=== PATIENT | female | born 1995 | race Caucasian/White ===

== ENCOUNTER 2020-05-10 06:15 | Inpatient (IN) | payer OTHER ==
[2020-05-10] MEDS ORDERED: TERBUTALINE 1 MG/ML VIAL SQ PRN (06:31)
[2020-05-10] MEDS ORDERED: LIDOCAINE 0.5% (PF) 5 MG/ML (50 ML SDV) SQ PRN (06:31)
[2020-05-10] MEDS ORDERED: OXYTOCIN 10 UNIT/ML 1 ML VIAL IM PRN (06:31)
[2020-05-10] MEDS ORDERED: METHYLERGONOVINE 0.2 MG/ML 1 ML AMP IM PRN (06:31)
[2020-05-10] MEDS ORDERED: CARBOPROST TROMETHAMINE 250 MCG/ML 1 ML AMP IM PRN (06:31)
[2020-05-10] MEDS ORDERED: AMPICILLIN 2,000 MG in SODIUM CHLORIDE 0.9% 100 ML IVPB STA (06:33)
[2020-05-10] MEDS: LACTATED RINGERS 1,000 ML IV SCH ×3 (06:43→17:16)
[2020-05-10] MEDS ORDERED: OXYTOCIN 30 UNITS/500 ML NS 30 UNIT in SALINE 1 500ML.BAG IV SCH (06:45)
[2020-05-10 07:01] LABS: Basophils # (A) 0.1 k/uL (0-0.2); Basophils % (A) 1 %; Eosinophils # (A) 0.4 k/uL (0-0.7); Eosinophils % (A) 3 %; HCT 41.3 % (34.0-46.0); HGB 13.5 gm/dL (11.4-16.0); Lymphocytes % (A) 20 %; MCH 29.8 pg (25.0-35.0); MCHC 32.6 g/dL (31.0-37.0); MCV 91.3 fL (80.0-100.0); Monocytes # (A) 1.1 k/uL (0-1.0); Monocytes % (A) 7 %; Neutrophils # (A) 10.2 k/uL (1.3-7.7); Neutrophils % (A) 68 %; Platelet Count 314 k/uL (150-450); RBC 4.53 m/uL (3.80-5.40); RDW 12.2 % (11.5-15.5); WBC 15.1 k/uL (3.8-10.6)
[2020-05-10] MEDS: AMPICILLIN 1,000 MG in SODIUM CHLORIDE 0.9% 50 ML IVPB SCH ×3 (11:03→18:46)
--- NOTE | 2020-05-10 12:56 | P.HPOB ---
History of Present Illness H&P Date: 05/10/20 Chief Complaint: Induction of labor 24-year-old presents at 40 weeks for induction of labor. Her cervix is 1- 2 cm dilated, 70% effaced, and -2 station. She is jose irregularly. heart tones are 135 with moderate variability and reactive. Review of Systems All systems: negative Constitutional: Denies chills, Denies fever Eyes: denies blurred vision, denies pain Ears, nose, mouth and throat: Denies headache, Denies sore throat Cardiovascular: Denies chest pain, Denies shortness of breath Respiratory: Denies cough Gastrointestinal: Denies abdominal pain, Denies diarrhea, Denies nausea, Denies vomiting Genitourinary: Denies dysuria, Denies hematuria Musculoskeletal: Denies myalgias Integumentary: Denies pruritus, Denies rash Neurological: Denies numbness, Denies weakness Psychiatric: Denies anxiety, Denies depression Endocrine: Denies fatigue, Denies weight change Past Medical History Past Medical History: No Reported History History of Any Multi-Drug Resistant Organisms: None Reported Past Surgical History: No Surgical Hx Reported Past Anesthesia/Blood Transfusion Reactions: No Reported Reaction Past Psychological History: No Psychological Hx Reported Smoking Status: Current every day smoker Past Alcohol Use History: None Reported Additional Past Alcohol Use History / Comment(s): 1/2 ppd Past Drug Use History: Marijuana Additional Drug Use History / Comment(s): occassional use - Past Family History Mother Family Medical History: Hypertension Additional Family Medical History / Comment(s): "heart problems" Father Additional Family Medical History / Comment(s): Stroke Medications and Allergies Home Medications Medication Instructions Recorded Confirmed Type Pnv No.95/Ferrous Fum/Folic AC 1 each PO DAILY 05/10/20 05/10/20 History [ Multivitamin Tablet] Allergies Allergy/AdvReac Type Severity Reaction Status Date / Time Corticosteroids Allergy Rash/Hives Verified 05/10/20 06:31 (Glucocorticoids) Exam Osteopathic Statement: *. No significant issues noted on an osteopathic structural exam other than those noted in the History and Physical/Consult. Vital Signs Temp Pulse Resp Pulse Ox 05/10/20 06:34 97.7 F 104 H 16 98 Intake and Output 05/09/20 05/10/20 05/10/20 22:59 06:59 14:59 Other: Weight 96.162 kg Heart: Regular rate and rhythm Lungs: Clear to auscultation bilaterally Abdomen: Soft, nontender Extremities: Negative Homans sign Results Result Diagrams: 05/10/20 06:40 Abnormal Lab Results - Last 24 Hours (Table) 05/10/20 Range/Units 06:40 WBC 15.1 H (3.8-10.6) k/uL Neutrophils # 10.2 H (1.3-7.7) k/uL Monocytes # 1.1 H (0-1.0) k/uL Assessment and Plan (1) Normal labor Current Visit: Yes Status: Acute Code(s): O80 - ENCOUNTER FOR FULL-TERM UNCOMPLICATED DELIVERY; Z37.9 - OUTCOME OF DELIVERY, UNSPECIFIED SNOMED Code(s): 11864556 Plan: 1. Induction of labor with amniotomy and Pitocin 2. Anticipate normal vaginal delivery
[2020-05-10] MEDS ORDERED: BENZOCAINE/MENTHOL SPRAY 1 GM/SPRAY AEROSOL TOPICAL PRN (23:43)
[2020-05-10] MEDS ORDERED: diphenhydrAMINE 50 MG/ML 1 ML VIAL IVP PRN ×2 (23:43)
[2020-05-10] MEDS ORDERED: IBUPROFEN 600 MG TAB PO PRN (23:43)
[2020-05-10] MEDS ORDERED: ZOLPIDEM 5 MG TAB PO PRN (23:43)
[2020-05-10] MEDS ORDERED: diphenhydrAMINE 25 MG CAP PO PRN (23:43)
[2020-05-10] MEDS ORDERED: SIMETHICONE 80 MG CHEWABLE PO PRN (23:43)
[2020-05-10] MEDS ORDERED: diphenhydrAMINE 50 MG CAP PO PRN (23:43)
[2020-05-10] MEDS ORDERED: LANOLIN CREAM 5 GM TUBE TOPICAL PRN (23:43)
[2020-05-10] MEDS ORDERED: ACETAMINOPHEN TAB 325 MG TAB PO PRN (23:43)
[2020-05-10] MEDS ORDERED: OXYTOCIN 20 UNITS/1000 ML NS 1,000 ML IV SCH (23:45)
[2020-05-11 07:21] LABS: Basophils # (A) 0.1 k/uL (0-0.2); Basophils % (A) 0 %; Eosinophils # (A) 0.2 k/uL (0-0.7); Eosinophils % (A) 1 %; HCT 39.4 % (34.0-46.0); HGB 12.6 gm/dL (11.4-16.0); Lymphocytes # (A) 2.3 k/uL (1.0-4.8); Lymphocytes % (A) 11 %; MCH 29.2 pg (25.0-35.0); MCHC 32.1 g/dL (31.0-37.0); MCV 91.2 fL (80.0-100.0); Mean Platelet Volume 8.2; Monocytes # (A) 1.6 k/uL (0-1.0); Monocytes % (A) 7 %; Neutrophils # (A) 17.6 k/uL (1.3-7.7); Neutrophils % (A) 79 %; Platelet Count 269 k/uL (150-450); RBC 4.31 m/uL (3.80-5.40); RDW 12.1 % (11.5-15.5); WBC 22.3 k/uL (3.8-10.6)
[2020-05-11] MEDS ORDERED: SENNOSIDES-DOCUSATE SODIUM 1 EACH TAB PO SCH (08:00)
--- NOTE | 2020-05-11 09:50 | P.PROBDLV ---
Vaginal Delivery Note - . Vaginal Delivery Note: 24-year-old presents at 40 weeks for induction of labor. Her cervix is 1- 2 cm dilated, 70% effaced, and -2 station. She is jose irregularly. heart tones are 135 with moderate variability and reactive. Pitocin was started. Amniotomy performed at 7:50 AM and clear fluid noted. heart tones remained category 1 and she changed positions, the Pitocin was increased per protocol and she was jose every few minutes but not very uncomforta ble until the late afternoon when she was 4 cm, 80% effaced and, -2 station. At this time she did get an epidural. Her cervix was completely dilated at 2301. She pushed, delivered a viable female infant over intact perineum under epidural anesthesia at 2326. Head delivered OA, anterior shoulder delivered gentle downward guidance of the posterior shoulder and rest of body. Nose and mouth bulb suctioned, cord clamped and cut, infant placed mother's abdomen. Apgars 8, 9, weight 6 lbs. 3 oz. Placenta delivered spontaneously, intact with three- vessel cord at 2330. Vagina, cervix, perineum inspected. First-degree midline laceration was repaired with 3-0 Vicryl. Estimated blood loss 150 mL. Mother and baby in stable condition.
--- NOTE | 2020-05-11 09:51 | P.PNOBGVD ---
Subjective - Subjective Principal diagnosis: Status post normal vaginal delivery day #1 Interval history: Patient seen and examined. Denies nausea, vomiting, chest pain, shortness of breath or calf pain. Patient reports: Reports appetite normal, Reports voiding normally, Reports pain well controlled, Reports ambulating normally [place]: doing well Objective - Latest Vital Signs Latest vital signs: Vital Signs Temp Pulse Resp BP Pulse Ox 05/11/20 08:00 98.5 F 84 18 129/79 99 05/11/20 04:00 98.5 F 98 16 122/77 99 05/11/20 01:40 98.1 F 93 16 126/69 05/11/20 01:10 98 16 132/63 05/11/20 00:40 97 16 130/71 05/11/20 00:25 101 H 16 142/73 05/11/20 00:10 106 H 16 133/68 05/10/20 23:55 107 H 16 158/78 05/10/20 23:40 98 F 99 16 132/78 99 Intake and Output 05/10/20 05/11/20 05/11/20 22:59 06:59 14:59 Output Total 200 Balance -200 Output: Urine 200 Other: # Voids 2 - Exam Lungs: bilateral: normal Chest: Normal S1, Normal S2 Extremities: Present: normal Abdomen: Present: normal appearance, soft Uterus: Present: normal, firm - Labs Labs: Abnormal Lab Results - Last 24 Hours (Table) 05/11/20 Range/Units 06:55 WBC 22.3 H (3.8-10.6) k/uL Neutrophils # 17.6 H (1.3-7.7) k/uL Monocytes # 1.6 H (0-1.0) k/uL Assessment and Plan (1) Normal vaginal delivery Current Visit: Yes Status: Acute Code(s): O80 - ENCOUNTER FOR FULL-TERM UNCOMPLICATED DELIVERY SNOMED Code(s): 81944835 Plan: 1. Continue care
[2020-05-12 00:36] VITALS: RESP 16
[2020-05-12 08:44] VITALS: BP 138/83; PULSE 75; TEMP 97.4
--- NOTE | 2020-05-12 09:59 | P.DS ---
Providers Date of admission: 05/10/20 06:20 Expected date of discharge: 05/12/20 Attending physician: Shruti Person Primary care physician: Stated None - Discharge Diagnosis(es) (1) Normal vaginal delivery Current Visit: Yes Status: Acute Hospital Course: Patient presented for induction of labor. She underwent a normal vaginal delivery. course was uncomplicated. Denies nausea, vomiting, chest pain, shortness of breath or calf pain. She's ablating voiding without difficulty. She'll be discharged home day #2 in stable condition to follow-up with me in 6 weeks. Plan - Discharge Summary New Discharge Prescriptions: No Action Pnv No.95/Ferrous Fum/Folic AC [ Multivitamin Tablet] 1 each PO DAILY Discharge Medication List Pnv No.95/Ferrous Fum/Folic AC [ Multivitamin Tablet] 1 each PO DAILY 05/10/20 [History]
--- NOTE | 2020-05-14 09:12 | CDI ---
Documentation Clarification Form Date: 05/14/20 From: Elo Case Phone: If you have a question about this query, please contact Gina Kelley, Clinical Education Consultant at [phone] between 8am and 5pm. Admit Date: 05/10/20 Discharge Date: 05/12/20 Patient Name: MARCIO NARANJO Visit Number: [id number] ATTENTION: The Clinical Documentation Specialists (CDI) and [facility] Coding Staff appreciate your assistance in clarifying documentation. Please respond to the clarification below the line at the bottom and electronically sign. The CDI & [facility] Coding staff will review the response and follow-up if needed. Please note: Queries are made part of the Legal Health Record. If you have any questions, please contact the author of this message via ITS. Dear Dr. Shruti Person, 24-year-old presents at 40 weeks for induction of labor. Per Delivery Form History: She is GBS Positive. She was started on Ampicillin 2,000 mg IVPB on admission. History/Risk Factors: smoking 1/2 ppd In your professional opinion, can you please clarify GBS positive? Other, please specify I don't understand the question. Her Group Beta Strep culture was positive when I tested her in the office. It is standard of care to treat GBS+ patients with antibiotics during labor.___ Unable to determine MTDD
== END 2020-05-12 11:50 | disposition home or self-care (01) | DRG 807 ==
LOC: 4FBP 06:20
PROVIDERS: ADMIT Obstetrics & Gynecology; ATTEND Obstetrics & Gynecology
PROC: 10907ZC Drainage of Amniotic Fluid, Therapeutic from Products of Conception, Via Natural or Artificial Opening (ICD-10-PCS; 2020-05-10)
PROC: 00HU33Z Insertion of Infusion Device into Spinal Canal, Percutaneous Approach (ICD-10-PCS; 2020-05-10)
PROC: 3E033VJ Introduction of Other Hormone into Peripheral Vein, Percutaneous Approach (ICD-10-PCS; 2020-05-10)
PROC: 3E0R3BZ Introduction of Anesthetic Agent into Spinal Canal, Percutaneous Approach (ICD-10-PCS; 2020-05-10)
PROC: 0HQ9XZZ Repair Perineum Skin, External Approach (ICD-10-PCS; principal; 2020-05-11)
PROC: 10E0XZZ Delivery of Products of Conception, External Approach (ICD-10-PCS; principal; 2020-05-11)
DX: O99.824 Streptococcus B carrier state complicating childbirth (principal); Z37.0 Single live birth; O70.0 First degree perineal laceration during delivery; O99.334 Smoking (tobacco) complicating childbirth; F17.210 Nicotine dependence, cigarettes, uncomplicated; Z3A.40 40 weeks gestation of pregnancy; Z79.899 Other long term (current) drug therapy; Z88.8 Allergy status to other drugs, medicaments and biological substances; Z82.49 Family history of ischemic heart disease and other diseases of the circulatory system; Z82.3 Family history of stroke
CPT/HCPCS: 85025; 86850; 86900; 86901

== ENCOUNTER 2021-05-18 10:24 | Inpatient (IN) | payer OTHER ==
[2021-05-18] MEDS ORDERED: LIDOCAINE 0.5% (PF) 5 MG/ML (50 ML SDV) SQ PRN (10:43)
[2021-05-18] MEDS ORDERED: METHYLERGONOVINE 0.2 MG/ML 1 ML AMP IM PRN (10:43)
[2021-05-18] MEDS ORDERED: TERBUTALINE 1 MG/ML VIAL SQ PRN (10:43)
[2021-05-18] MEDS ORDERED: AMPICILLIN 2,000 MG in SODIUM CHLORIDE 0.9% 100 ML IVPB STA (10:43)
[2021-05-18] MEDS ORDERED: OXYTOCIN 10 UNIT/ML 1 ML VIAL IM PRN (10:43)
[2021-05-18] MEDS ORDERED: CARBOPROST TROMETHAMINE 250 MCG/ML 1 ML AMP IM PRN (10:43)
[2021-05-18] MEDS ORDERED: LACTATED RINGERS 1,000 ML IV SCH (10:45)
[2021-05-18] MEDS ORDERED: OXYTOCIN 30 UNITS/500 ML NS 30 UNIT in SALINE 1 500ML.BAG IV SCH ×2 (10:45→14:34)
--- NOTE | 2021-05-18 11:22 | P.HPOB ---
History of Present Illness H&P Date: 05/18/21 Chief Complaint: Contractions This is a 25-year-old female 2 para 1 with an estimated date of confinement of 05/14/2021, estimated gestational age of 40-4/7 weeks, who presents to labor and delivery with complaints of contractions that began last night and became stronger today. She also wasn't sure if she was leaking some fluid. care has been with Dr. Person and has been uncomplicated per patient. labs: Chlamydia-positive initially, test of cure negative Gonorrhea/Trichomonas-negative Hepatitis B surface antigen-negative RPR-nonreactive Rubella-immune Blood type-a be positive Antibody screen-negative HIV-nonreactive Hemoglobin-13.6 Quad screen-negative Toxoplasma-negative Random glucose-43 Obstetrical ultrasound-normal anatomy One hour Glucola-92 B streptococcus-positive Obstetrical history: . History of 1 vaginal delivery at term. That did pass away from SIDS at approximately 2 months old. Gynecologic history: History of chlamydia treated during this Social history: She is single. She is unemployed. Review of Systems Constitutional: Denies chills, Denies fever Eyes: denies blurred vision, denies pain Ears, nose, mouth and throat: Denies headache, Denies sore throat Cardiovascular: Denies chest pain, Denies shortness of breath Respiratory: Denies cough Gastrointestinal: Reports abdominal pain (Irregular contractions) Genitourinary: Reports pelvic pain Musculoskeletal: Reports low back pain Integumentary: Denies pruritus, Denies rash Neurological: Denies numbness, Denies weakness Psychiatric: Denies anxiety, Denies depression Past Medical History Past Medical History: No Reported History History of Any Multi-Drug Resistant Organisms: None Reported Past Surgical History: No Surgical Hx Reported Past Anesthesia/Blood Transfusion Reactions: No Reported Reaction Past Psychological History: No Psychological Hx Reported Smoking Status: Current every day smoker Past Alcohol Use History: None Reported Additional Past Alcohol Use History / Comment(s): 1/2 ppd Past Drug Use History: Marijuana (Patient states she hasn't used since she found out she was ) Additional Drug Use History / Comment(s): occassional use - Past Family History Mother Family Medical History: Hypertension Additional Family Medical History / Comment(s): "heart problems" Father Additional Family Medical History / Comment(s): Stroke Medications and Allergies Home Medications Medication Instructions Recorded Confirmed Type Pnv No.95/Ferrous Fum/Folic AC 1 each PO DAILY 05/10/20 05/18/21 History [ Multivitamin Tablet] Allergies Allergy/AdvReac Type Severity Reaction Status Date / Time Corticosteroids Allergy Rash/Hives Verified 05/10/20 06:31 (Glucocorticoids) Exam Osteopathic Statement: *. No significant issues noted on an osteopathic structural exam other than those noted in the History and Physical/Consult. Intake and Output 05/17/21 05/18/21 05/18/21 22:59 06:59 14:59 Other: Weight 101.151 kg HEENT: Within normal limits Heart: Regular rate and rhythm Lungs: Clear to auscultation bilaterally Abdomen: Cervix: 6 cm/90%/bulging bag heart tones: Reactive, category 1 Contractions: Every 2-3 minutes Extremities: Negative Homans Assessment and Plan (1) 40 weeks gestation of Current Visit: Yes Status: Acute Code(s): Z3A.40 - 40 WEEKS GESTATION OF SNOMED Code(s): 66605382 (2) Group B Streptococcus carrier, +RV culture, currently Current Visit: Yes Status: Acute Code(s): O99.820 - STREPTOCOCCUS B CARRIER STATE COMPLICATING SNOMED Code(s): 7468077288071 Plan: Admission for active labor. Antibiotic prophylaxis for group B streptococcus. Expectant management. Epidural anesthesia if desired. Will check urine drug screen. Social service consult will also be performed due to open CPS case.
[2021-05-18 11:31] LABS: Basophils # (A) 0.1 k/uL (0-0.2); Basophils % (A) 0 %; Eosinophils # (A) 0.1 k/uL (0-0.7); Eosinophils % (A) 1 %; HCT 41.5 % (34.0-46.0); HGB 13.8 gm/dL (11.4-16.0); Lymphocytes # (A) 1.8 k/uL (1.0-4.8); Lymphocytes % (A) 8 %; MCH 30.6 pg (25.0-35.0); MCHC 33.3 g/dL (31.0-37.0); MCV 92.1 fL (80.0-100.0); Mean Platelet Volume 8.3; Monocytes % (A) 5 %; Neutrophils # (A) 18.8 k/uL (1.3-7.7); Neutrophils % (A) 85 %; Platelet Count 289 k/uL (150-450); RDW 12.1 % (11.5-15.5)
[2021-05-18] MEDS ORDERED: BUTORPHANOL 1 MG/ML 1 ML VIAL IV PRN (13:10)
[2021-05-18 13:21] LABS: Amphetamine Screen,Urine Not Detected (NotDetected); Barbiturate Screen,Urine Not Detected (NotDetected); Benzodiazepines Screen,Urine Not Detected (NotDetected); Cocaine Screen,Urine Not Detected (NotDetected); Methadone Screen, Urine Not Detected (NotDetected); Opiate Screen,Urine Not Detected (NotDetected); Oxycodone Screen, Urine Not Detected (NotDetected); Phencyclidine Screen,Urine Not Detected (NotDetected); Tricyclic Antidepressant,Urine Not Detected (NotDetected); Urn Cannabinoid Scrn Not Detected (NotDetected)
--- NOTE | 2021-05-18 14:32 | P.PROBDLV ---
Vaginal Delivery Note - . Vaginal Delivery Note: The patient progressed to complete dilation after artificial rupture membranes with clear fluid noted. She did receive 1 dose of ampicillin while in labor due to group B strep. She did receive 1 dose of Stadol while in labor. Once reaching complete, she began pushing. Infant's a cage a crown. With one further push the infant's head delivered across the perineum followed by the anterior shoulder. Nose and mouth were bulb suctioned. With one remaining push, the remainder the easily delivered and was placed on mother's abdomen. A viable female infant is noted with scores of 8 at 1 minute and 9 at 5 minutes and infant weight was 6 lbs. 12 oz. Placenta delivered shortly thereafter, intact, with a three-vessel cord. Also indications were noted within the placenta. Uterus contracted fairly well after oxytocin was given and uterine massage was carried out. Uterus did become a little boggy and a gloved hand was placed within the uterine cavity and blood clot was removed. No further membranous tissue was noted. Uterus did contract well after this. Estimated blood loss is approximately 200 mL's. Both mother and infant are in stable condition. No perineal lacerations are noted.
[2021-05-18] MEDS ORDERED: ACETAMINOPHEN TAB 325 MG TAB PO PRN (14:34)
[2021-05-18] MEDS ORDERED: LANOLIN CREAM 5 GM TUBE TOPICAL PRN (14:34)
[2021-05-18] MEDS ORDERED: diphenhydrAMINE 50 MG CAP PO PRN (14:34)
[2021-05-18] MEDS ORDERED: diphenhydrAMINE 25 MG CAP PO PRN (14:34)
[2021-05-18] MEDS ORDERED: HYDROCORTISONE 2.5% RECTAL CREAM 30 GM TUBE RECTAL PRN (14:34)
[2021-05-18] MEDS ORDERED: BENZOCAINE/MENTHOL SPRAY 1 GM/SPRAY AEROSOL TOPICAL PRN (14:34)
[2021-05-18] MEDS ORDERED: ZOLPIDEM 5 MG TAB PO PRN (14:34)
[2021-05-18] MEDS ORDERED: SIMETHICONE 80 MG CHEWABLE PO PRN (14:34)
[2021-05-18] MEDS ORDERED: IBUPROFEN 600 MG TAB PO PRN (14:34)
[2021-05-18] MEDS ORDERED: diphenhydrAMINE 50 MG/ML 1 ML VIAL IVP PRN ×2 (14:34)
[2021-05-18] MEDS ORDERED: AMPICILLIN 1,000 MG in SODIUM CHLORIDE 0.9% 50 ML IVPB SCH (15:00)
[2021-05-18] MEDS: SENNOSIDES-DOCUSATE SODIUM 1 EACH TAB PO SCH (20:07)
[2021-05-19 06:58] LABS: Basophils # (A) 0.1 k/uL (0-0.2); Basophils % (A) 0 %; Eosinophils # (A) 0.3 k/uL (0-0.7); Eosinophils % (A) 2 %; HGB 12.6 gm/dL (11.4-16.0); Lymphocytes # (A) 3.3 k/uL (1.0-4.8); Lymphocytes % (A) 17 %; MCH 31.3 pg (25.0-35.0); MCHC 33.1 g/dL (31.0-37.0); MCV 94.4 fL (80.0-100.0); Mean Platelet Volume 8.5; Monocytes # (A) 1.1 k/uL (0-1.0); Monocytes % (A) 6 %; Neutrophils # (A) 13.8 k/uL (1.3-7.7); Neutrophils % (A) 72 %; Platelet Count 262 k/uL (150-450); RBC 4.02 m/uL (3.80-5.40); RDW 12.2 % (11.5-15.5)
--- NOTE | 2021-05-19 08:20 | P.PNOBGVD ---
Subjective - Subjective Principal diagnosis: Status post vaginal delivery day #1 Interval history: Patient is doing well. She denies any fevers. Lochia has been minimal. She is bottle feeding. Pain has been fairly well-controlled. Patient reports: Reports appetite normal, Reports voiding normally, Reports pain well controlled, Reports ambulating normally : doing well, bottle feeding Objective - Latest Vital Signs Latest vital signs: Vital Signs Temp Pulse Resp BP Pulse Ox 05/19/21 04:00 98.5 F 94 16 113/72 05/19/21 00:00 98.1 F 78 16 112/69 05/18/21 20:00 98.3 F 73 16 123/78 05/18/21 16:30 98.1 F 91 18 121/72 05/18/21 16:00 98.7 F 86 18 129/62 05/18/21 15:30 89 130/62 05/18/21 15:15 98.0 F 81 18 112/62 05/18/21 15:05 96 120/66 05/18/21 14:45 97.8 F 88 18 121/65 05/18/21 14:30 97.8 F 95 18 132/61 05/18/21 11:10 97.6 F 101 H 18 123/82 97 Intake and Output 05/18/21 05/19/21 05/19/21 22:59 06:59 14:59 Intake Total 61.233 Balance 61.233 Intake: Intake, IV Titration 61.233 Amount Oxytocin 30 Units/500 ml 61.233 Ns 30 unit In Saline 1 500ml.bag @ Per Protocol IV .Q0M [facility] Rx#:[id number] Other: # Voids 1 2 - Exam Extremities: Present: normal. Absent: tenderness Abdomen: Present: normal appearance, soft. Absent: distention, tenderness Uterus: Present: normal, firm. Absent: tenderness - Labs Labs: Abnormal Lab Results - Last 24 Hours (Table) 05/18/21 05/19/21 Range/Units 11:11 06:32 WBC 22.0 H 19.0 H (3.8-10.6) k/uL Neutrophils # 18.8 H 13.8 H (1.3-7.7) k/uL Monocytes # 1.1 H (0-1.0) k/uL Assessment and Plan Assessment: Status post vaginal delivery day #1 Leukocytosis-afebrile (1) 40 weeks gestation of Current Visit: Yes Status: Acute Code(s): Z3A.40 - 40 WEEKS GESTATION OF SNOMED Code(s): 52473092 (2) Group B Streptococcus carrier, +RV culture, currently Current Visit: Yes Status: Acute Code(s): O99.820 - STREPTOCOCCUS B CARRIER STATE COMPLICATING SNOMED Code(s): 8963866393783 Plan: Will start on cephalexin today due to leukocytosis of unknown etiology. Patient did receive ampicillin in labor times one dose. The baby is being watched due to only 1 dose of antibiotic. We'll repeat CBC tomorrow. Anticipate discharge home tomorrow.
[2021-05-19] MEDS: CEPHALEXIN 500 MG CAP PO SCH ×4 (08:51→21:05)
[2021-05-19] MEDS: SENNOSIDES-DOCUSATE SODIUM 1 EACH TAB PO SCH ×2 (13:12→21:04)
[2021-05-19] MEDS: PRENATAL VIT-IRON-FOLIC ACID 1 EACH CAP PO SCH (21:04)
--- NOTE | 2021-05-20 07:06 | P.DS ---
Providers Date of admission: 05/18/21 10:49 Expected date of discharge: 05/20/21 Attending physician: Shruti Person Primary care physician: Stated None - Discharge Diagnosis(es) (1) Normal vaginal delivery Current Visit: No Status: Acute Hospital Course: She presented in active labor. Showing a normal vaginal delivery. course was uncomplicated. Denies nausea, vomiting, chest pain, shortness of breath or any calf pain. She'll be discharged home day #2 in stable condition to follow-up with me in 6 weeks. Plan - Discharge Summary New Discharge Prescriptions: New Ibuprofen [Motrin] 600 mg PO Q6HR PRN #30 tab PRN Reason: Mild Pain (Scale 1 To 3) No Action Pnv No.95/Ferrous Fum/Folic AC [ Multivitamin Tablet] 1 each PO DAILY Discharge Medication List Pnv No.95/Ferrous Fum/Folic AC [ Multivitamin Tablet] 1 each PO DAILY 05/10/20 [History] Ibuprofen [Motrin] 600 mg PO Q6HR PRN #30 tab 05/20/21 [Rx] Follow up Appointment(s)/Referral(s): Shruti Person DO [Doctor of Osteopathic Medicine] - 07/01/21 10:45 am Discharge Disposition: HOME SELF-CARE
[2021-05-20 07:11] LABS: Basophils # (A) 0.1 k/uL (0-0.2); Basophils % (A) 1 %; Eosinophils # (A) 0.4 k/uL (0-0.7); Eosinophils % (A) 3 %; HGB 12.8 gm/dL (11.4-16.0); Lymphocytes # (A) 2.5 k/uL (1.0-4.8); Lymphocytes % (A) 20 %; MCH 31.4 pg (25.0-35.0); MCHC 33.5 g/dL (31.0-37.0); MCV 93.5 fL (80.0-100.0); Monocytes # (A) 0.8 k/uL (0-1.0); Monocytes % (A) 7 %; Neutrophils % (A) 66 %; Platelet Count 261 k/uL (150-450); RBC 4.07 m/uL (3.80-5.40); RDW 12.2 % (11.5-15.5); WBC 12.1 k/uL (3.8-10.6)
[2021-05-20] MEDS: SENNOSIDES-DOCUSATE SODIUM 1 EACH TAB PO SCH (09:50)
[2021-05-20] MEDS: CEPHALEXIN 500 MG CAP PO SCH ×2 (09:54→14:41)
[2021-05-20] MEDS: PRENATAL VIT-IRON-FOLIC ACID 1 EACH CAP PO SCH (09:54)
[2021-05-20 10:02] VITALS: BP 132/78; PULSE 81; RESP 14; TEMP 98.8
== END 2021-05-20 15:32 | disposition home or self-care (01) | DRG 806 ==
LOC: FBPOP 10:24 → 4FBP 10:49
PROVIDERS: ADMIT Obstetrics & Gynecology; ATTEND Obstetrics & Gynecology
PROC: 10E0XZZ Delivery of Products of Conception, External Approach (ICD-10-PCS; principal; 2021-05-18)
PROC: 3E033VJ Introduction of Other Hormone into Peripheral Vein, Percutaneous Approach (ICD-10-PCS; 2021-05-18)
PROC: 10907ZC Drainage of Amniotic Fluid, Therapeutic from Products of Conception, Via Natural or Artificial Opening (ICD-10-PCS; 2021-05-18)
DX: O99.824 Streptococcus B carrier state complicating childbirth (principal); O98.32 Other infections with a predominantly sexual mode of transmission complicating childbirth; Z37.0 Single live birth; D72.829 Elevated white blood cell count, unspecified; A56.8 Sexually transmitted chlamydial infection of other sites; F17.200 Nicotine dependence, unspecified, uncomplicated; O99.334 Smoking (tobacco) complicating childbirth; Z3A.40 40 weeks gestation of pregnancy
CPT/HCPCS: 59025; 80306; 85025; 86850; 86900; 86901; 88307; 99213